=== PATIENT | male | born 1980 | race Caucasian/White ===

== ENCOUNTER 2017-02-12 15:25 | Emergency (ER) | payer BC, MEDICAID ==
[~2017-02-12] VITALS: Ht 175.3 cm; Wt 87.5 kg
[2017-02-12 16:28] LABS: *BLOOD, URINE NEGATIVE (NEGATIVE); *CLARITY,URINE CLEAR (CLEAR); *KETONES,URINE TRACE (NEGATIVE); *PROTEIN,URINE 1+ (NEGATIVE); *UROBILINOGEN,URINE 0.2 E.U./dl (NORMAL); LEUKOCYTE ESTERASE ,URINE NEGATIVE (NEGATIVE); NITRITE, URINE NEGATIVE (NEGATIVE); UGLUCOSE NEGATIVE (NEGATIVE)
--- NOTE | 2017-02-12 16:45 | NUR ---
Pt walked to nursing station and stated he has also been having intermittent chest pain, stat ekg done.
[2017-02-12 16:47] LABS: BASOPHILS # (AUTO) 0.1 K/uL (0.0-8.0); BASOPHILS % (AUTO) 1.2 % (0.0-2.0); EOSINOPHILS # (AUTO) 0.2 K/uL (0.0-0.7); EOSINOPHILS % (AUTO) 2.3 % (0.0-7.0); HEMATOCRIT 49.5 % (40-50); HEMOGLOBIN 16.6 G/DL (14.0-18.0); LYMPHOCYTES # (AUTO) 1.1 K/UL (0.8-4.8); LYMPHOCYTES % (AUTO) 12.3 % (20.5-51.5); MEAN CORPUSCULAR HEMOGLOBIN 27.9 UUG (27.0-31.0); MEAN CORPUSCULAR HGB CONC 34 g/dL (32.0-37.0); MEAN CORPUSCULAR VOLUME 83.3 FL (82.0-92.0); MONOCYTES # (AUTO) 1.1 K/UL (0.1-1.30); MONOCYTES % (AUTO) 11.6 % (0.0-11.0); NEUTROPHILS # (AUTO) 6.6 K/UL (1.8-8.9); NEUTROPHILS % (AUTO) 72.6 % (38.5-71.5); PLATELET COUNT (AUTO) 234 K/UL (150-450); RED BLOOD CELL COUNT(AUTO) 5.94 MIL/UL (4.7-6.1); WHITE BLOOD COUNT (AUTO) 9.1 K/UL (4.0-11.2)
[2017-02-12 16:52] LABS: CREATININE 1.1 mg/dL (0.6-1.3); POTASSIUM 4.5 mmol/L (3.5-5.1)
[2017-02-12 16:54] LABS: *COLOR,URINE DARK YELLOW (YELLOW)
[2017-02-12 16:55] LABS: *BILIRUBIN,URIN NEGATIVE (NEGATIVE)
[2017-02-12 16:58] LABS: BILIRUBIN,TOTAL 0.4 mg/dL (0.2-1.0); TOTAL PROTEIN, SERUM 7.8 g/dL (6.4-8.2)
[2017-02-12 16:58] LABS: CALCIUM OXALATE CRYSTALS,UR FEW /HPF (NONE SEEN); MUCUS,URINE MANY /LPF (0-FEW); WBC,URINE 0-3 /HPF (0-3)
--- NOTE | 2017-02-12 18:00 | NUR ---
Pt left before seeing the doctor, pt stated " I have to go to work ".
== END 2017-02-12 18:05 | disposition left against medical advice (07) ==
LOC: ER 15:26
DX: R10.9 Unspecified abdominal pain (principal); R53.1 Weakness
CPT/HCPCS: 36415; 80053; 81001; 85025; 93005; 99285; A4663

== ENCOUNTER 2017-05-24 20:53 | Emergency (ER) | payer BC, MEDICAID ==
[~2017-05-24] VITALS: Ht 180.3 cm; Wt 83.9 kg
--- NOTE | 2017-05-24 22:23 | NUR ---
Patient in bed, noted screaming from his bed " I have been here too long, I should be seen first, I am Vincent chi." Patient is educated that everyone is seen on a Triage basis, and the MD will be with the patient as soon as possible. Patient provided with call light, no acute distress noted at this time.
--- NOTE | 2017-05-24 23:06 | NUR ---
Ambulated to the restroom with stable gait. no acute distress at this time. Respirations even and unlabored. No SOB or congestion noted. No cardiovascular distress noted.
[2017-05-24] MEDS ORDERED: METOCLOPRAMIDE HCL 10 MG/2 ML VIAL IV ONE (23:15)
[2017-05-24] MEDS ORDERED: KETOROLAC TROMETHAMINE 15 MG INJ IVP ONE (23:15)
[2017-05-24] MEDS ORDERED: IV NORMAL SALINE 1000 ML BAG IV ONE (23:15)
[2017-05-24] MEDS ORDERED: KETOROLAC TROMETHAMINE 30 MG INJ ONE (23:38)
[2017-05-24] MEDS ORDERED: METOCLOPRAMIDE HCL 10 MG/2 ML VIAL ONE (23:38)
[2017-05-24 23:40] LABS: BASOPHILS % (AUTO) 0.4 % (0.0-2.0); EOSINOPHILS # (AUTO) 0.1 K/uL (0.0-0.7); EOSINOPHILS % (AUTO) 1.5 % (0.0-7.0); HEMATOCRIT 44.7 % (36.7-47.1); HEMOGLOBIN 15.8 g/dL (12.5-16.3); LYMPHOCYTES # (AUTO) 2.4 K/uL (20.0-40.0); LYMPHOCYTES % (AUTO) 34.6 % (20.5-51.5); MEAN CORPUSCULAR HEMOGLOBIN 29.2 uug (23.8-33.4); MEAN CORPUSCULAR HGB CONC 35 g/dL (32.5-36.3); MEAN CORPUSCULAR VOLUME 82.6 fL (73.0-96.2); MONOCYTES # (AUTO) 0.9 K/uL (2.0-10.0); MONOCYTES % (AUTO) 12.4 % (0.0-11.0); NEUTROPHILS # (AUTO) 3.5 K/uL (1.8-8.9); NEUTROPHILS % (AUTO) 51.1 % (38.5-71.5); PLATELET COUNT (AUTO) 236 K/uL (152-348); WHITE BLOOD COUNT (AUTO) 6.9 K/uL (3.6-10.2)
[2017-05-24 23:49] LABS: CREATININE 0.9 mg/dL (0.6-1.3); POTASSIUM 3.4 mmol/L (3.5-5.1)
--- NOTE | 2017-05-24 23:58 | NUR ---
Patient eloped from facility. ER physician notified. Peripheral IV removed prior to elopement. All belongings with patient. VSS. Ambulated with stable gait accompanied by . Patient is driving patient home in private vehicle.
[2017-05-25 00:04] LABS: BILIRUBIN,DIRECT 0.1 mg/dL (0.0-0.2); BILIRUBIN,TOTAL 0.3 mg/dL (0.2-1.0); TOTAL PROTEIN, SERUM 7.4 g/dL (6.4-8.2)
== END 2017-05-25 | disposition left against medical advice (07) ==
LOC: ER 20:54
DX: J11.1 Influenza due to unidentified influenza virus with other respiratory manifestations (principal)
CPT/HCPCS: 36415; 80048; 80076; 83605; 84484; 85025; 87040 ×2; 96374 ×2; 99284; A4663 ×2; J1885; J2765; J7030; 70030-TC

== ENCOUNTER 2019-12-20 15:47 | Inpatient (IN) | payer BC ==
[~2019-12-20] VITALS: Ht 175.3 cm; Wt 88.5 kg
[2019-12-20] MEDS ORDERED: KETOROLAC TROMETHAMINE 15 MG INJ IVP STA (16:13)
[2019-12-20] MEDS ORDERED: HYDROMORPHONE 1 MG/1 ML DISP.SYRIN IV ONE ×2 (16:15→19:30)
[2019-12-20] MEDS ORDERED: FAMOTIDINE. 20 MG/2 ML VIAL IV ONE ×2 (16:15→16:34)
[2019-12-20] MEDS ORDERED: ONDANSETRON 4 MG/2 ML VIAL IV ONE (16:15)
[2019-12-20] MEDS ORDERED: IV NORMAL SALINE 1000 ML BAG IV ONE ×2 (16:15)
[2019-12-20] MEDS ORDERED: PANTOPRAZOLE SODIUM IV 80 MG in IV DEXTROSE 5% 100 ML IV ONE (16:30)
[2019-12-20] MEDS ORDERED: KETOROLAC TROMETHAMINE 30 MG INJ ONE (16:33)
[2019-12-20] MEDS ORDERED: ONDANSETRON 4 MG/2 ML VIAL ONE (16:34)
[2019-12-20] MEDS ORDERED: HYDROMORPHONE 1 MG/1 ML DISP.SYRIN ONE ×2 (16:34→19:36)
[2019-12-20 16:35] LABS: BASOPHILS # (AUTO) 0.1 K/uL (0.0-8.0); BASOPHILS % (AUTO) 0.6 % (0.0-2.0); EOSINOPHILS % (AUTO) 0.5 % (0.0-7.0); HEMATOCRIT 49.8 % (36.7-47.1); HEMOGLOBIN 17.1 g/dL (12.5-16.3); LYMPHOCYTES # (AUTO) 1.5 K/uL (20.0-40.0); MEAN CORPUSCULAR HEMOGLOBIN 28.9 uug (23.8-33.4); MEAN CORPUSCULAR HGB CONC 34 g/dL (32.5-36.3); MEAN CORPUSCULAR VOLUME 84.2 fL (73.0-96.2); MONOCYTES # (AUTO) 0.9 K/uL (2.0-10.0); MONOCYTES % (AUTO) 10.1 % (0.0-11.0); NEUTROPHILS % (AUTO) 70.8 % (38.5-71.5); PLATELET COUNT (AUTO) 288 K/uL (152-348); RED BLOOD CELL COUNT(AUTO) 5.92 MIL/uL (4.06-5.63); WHITE BLOOD COUNT (AUTO) 8.5 K/uL (3.6-10.2)
[2019-12-20 16:49] LABS: BILIRUBIN,DIRECT 0.1 mg/dL (0.0-0.2); BILIRUBIN,TOTAL 0.4 mg/dL (0.2-1.0); CREATININE 1.6 mg/dL (0.6-1.3); POTASSIUM 3.9 mmol/L (3.5-5.1); TOTAL PROTEIN, SERUM 8.6 g/dL (6.4-8.2)
[2019-12-20] MEDS ORDERED: PANTOPRAZOLE SODIUM 40 MG VIAL ONE ×2 (17:22→19:37)
[2019-12-20] MEDS ORDERED: SWABABLE VALVE TRANSFER SET EA MC ONE (18:13)
[2019-12-20] MEDS ORDERED: IV NORMAL SALINE 250 ML IV ONE (18:13)
[2019-12-20] MEDS ORDERED: IOHEXOL 300MG/ML 100 ML INFUS..BTL ONE (18:13)
--- NOTE | 2019-12-20 19:15 | NUR ---
Dr. Cruz on panel call with Dr. Franki Betts. Patient accepted for admission to [facility], diagnosis: abdominal pain.
--- NOTE | 2019-12-20 19:17 | NUR ---
brie desai talking to dr. vaz per insurance request for possible transfer.
--- NOTE | 2019-12-20 19:19 | NUR ---
pt non transferable, pt will be admitted to [facility].
[2019-12-20] MEDS ORDERED: PANTOPRAZOLE SODIUM IV 80 MG in IV DEXTROSE 5% 500 ML IV ONE (19:30)
[2019-12-20] MEDS ORDERED: OCTREOTIDE ACETATE INJ 500 MCG in IV DEXTROSE 5% 100 ML IV ONE (19:30)
[2019-12-20] MEDS ORDERED: OCTREOTIDE ACETATE 50 MCG/1 ML ML IV ONE (19:30)
[2019-12-20] MEDS ORDERED: ACETAMINOPHEN 325 MG TABLET PO PRN (19:45)
[2019-12-20] MEDS ORDERED: HYDROCODONE/APAP 5-325MG TABLET PO PRN (19:45)
[2019-12-20] MEDS ORDERED: Z GUARD REMEDY PASTE 57 GM TUBE TOP PRN (19:45)
[2019-12-20] MEDS ORDERED: OCTREOTIDE ACETATE 500 MCG/1 ML VIAL ONE (21:04)
[2019-12-20] MEDS ORDERED: OCTREOTIDE ACETATE 50 MCG/1 ML ML ONE (21:04)
[2019-12-20] MEDS ORDERED: MORPHINE SULFATE 2 MG/1 ML DISP.SYRIN IV ONE (22:30)
[2019-12-20] MEDS ORDERED: MORPHINE SULFATE 2 MG/1 ML DISP.SYRIN ONE (22:32)
--- NOTE | 2019-12-20 22:47 | NUR ---
Report given to Janice GRADY Tele.
--- NOTE | 2019-12-20 23:23 | NUR ---
Received pt via [employer], transported by [facility]. Patient is AAOX4. Patient denies any acute distress but complains of abdominal pain. Will assess and administer prescribed PRN pain med. Patient is on 2L NC saturating WNL. NSR on tele monitor, V/S Stable. RFA IV is intact. Pt is afebrile. Safety measures in place. Call light within reach. Will continue to monitor.
[2019-12-20 23:30] VITALS: BP 142/97
[2019-12-20] MEDS: MORPHINE SULFATE 2 MG/1 ML DISP.SYRIN IV PRN (23:58)
[2019-12-21] MEDS: ZOLPIDEM 5 MG TABLET PO PRN ×2 (01:31→21:00)
[2019-12-21 04:00] VITALS: BP 102/52
[2019-12-21 06:19] LABS: BASOPHILS % (AUTO) 0.6 % (0.0-2.0); EOSINOPHILS # (AUTO) 0.2 K/uL (0.0-0.7); EOSINOPHILS % (AUTO) 3.2 % (0.0-7.0); HEMATOCRIT 43.1 % (36.7-47.1); HEMOGLOBIN 14.8 g/dL (12.5-16.3); LYMPHOCYTES # (AUTO) 1.9 K/uL (20.0-40.0); LYMPHOCYTES % (AUTO) 36.5 % (20.5-51.5); MEAN CORPUSCULAR HEMOGLOBIN 29.1 uug (23.8-33.4); MEAN CORPUSCULAR HGB CONC 34 g/dL (32.5-36.3); MEAN CORPUSCULAR VOLUME 84.6 fL (73.0-96.2); MONOCYTES # (AUTO) 0.7 K/uL (2.0-10.0); MONOCYTES % (AUTO) 13.3 % (0.0-11.0); NEUTROPHILS # (AUTO) 2.5 K/uL (1.8-8.9); NEUTROPHILS % (AUTO) 46.4 % (38.5-71.5); PLATELET COUNT (AUTO) 231 K/uL (152-348); RED BLOOD CELL COUNT(AUTO) 5.09 MIL/uL (4.06-5.63); WHITE BLOOD COUNT (AUTO) 5.3 K/uL (3.6-10.2)
[2019-12-21 06:39] LABS: CREATININE 1.6 mg/dL (0.6-1.3); MAGNESIUM 1.9 mg/dL (1.8-2.4); PHOSPHOROUS 3.5 mg/dL (2.5-4.9); POTASSIUM 4.2 mmol/L (3.5-5.1)
[2019-12-21 06:40] LABS: THYROID STIMULATING HORMONE 0.368 mIU/mL (0.358-3.740)
[2019-12-21] MEDS: IV D5 1/2 NS 1000 ML 1,000 ML IV PRN ×2 (06:46→19:46)
--- NOTE | 2019-12-21 06:50 | NUR ---
Pt slept throughout the night. Pt awake and denies any acute distress or pain at this time. V/S stable, on 2L NC saturating WNL. NSR 72 on tele monitor. Pain managed effectively. Comfort care and needs attended. Safety measures in place. Call light within reach. Will endorse to the oncoming nurse accordingly.
[2019-12-21] MEDS ORDERED: PANTOPRAZOLE SODIUM 40 MG VIAL IV SCH (09:00)
[2019-12-21 10:39] LABS: *BILIRUBIN,URIN NEGATIVE (NEGATIVE); *BLOOD, URINE NEGATIVE (NEGATIVE); *CLARITY,URINE CLEAR (CLEAR); *KETONES,URINE NEGATIVE (NEGATIVE); *UROBILINOGEN,URINE 0.2 E.U./dl (NORMAL); LEUKOCYTE ESTERASE ,URINE NEGATIVE (NEGATIVE); NITRITE, URINE NEGATIVE (NEGATIVE); UGLUCOSE NEGATIVE (NEGATIVE)
[2019-12-21 10:44] LABS: *COLOR,URINE YELLOW (YELLOW)
[2019-12-21 10:50] LABS: *CREATININE,URINE < 13.0 mg/dL (30-125); *URINE TOTAL PROTEIN RANDOM < 6.0 mg/dL (<150/24HR)
[2019-12-21 11:25] LABS: *AMPHETAMINE, URINE NEGATIVE (NEGATIVE); *BARBITURATE, URINE NEGATIVE (NEGATIVE); *CANNABINOID, URINE NEGATIVE (NEGATIVE); *COCCAINE, URINE NEGATIVE (NEGATIVE); *OPIATE, URINE NEGATIVE (NEGATIVE); *PHENCYCLIDINE SCREEN,URINE NEGATIVE (NEGATIVE)
[2019-12-21 11:30] VITALS: BP 109/67
[2019-12-21] MEDS: ONDANSETRON 4 MG/2 ML VIAL IV PRN ×2 (11:42→12:20)
[2019-12-21] MEDS: MORPHINE SULFATE 2 MG/1 ML DISP.SYRIN IV PRN ×4 (11:42→23:33)
[2019-12-21 12:34] LABS: ALANINE AMINOTRANSFERASE 73 U/L (16-63); ALKALINE PHOSPHATASE 58 U/L (50-136); ASPARTATE AMINOTRANSFERASE 41 U/L (15-37); BILIRUBIN,DIRECT < 0.1 mg/dL (0.0-0.2); BILIRUBIN,TOTAL 0.5 mg/dL (0.2-1.0); TOTAL PROTEIN, SERUM 6.9 g/dL (6.4-8.2)
[2019-12-21] MEDS: PANTOPRAZOLE SODIUM 40 MG VIAL IV SCH (16:03)
[2019-12-21 16:07] VITALS: BP 126/73
--- NOTE | 2019-12-21 19:30 | NUR ---
Received patient calm sitting on the side of the bed. AAOX4. No signs or symptoms of acute distress noted at this time. Patient c/o pain and will administer medication according to availability. monitor car operator is on. Right AC IV patent and intact. Safety measures initiated and will continue to monitor.
[2019-12-21 20:02] VITALS: BP 125/71
[2019-12-21 21:59] LABS: *OCCULT BLOOD STOOL NEGATIVE (NEGATIVE)
[2019-12-22] VITALS: BP 122/54
[2019-12-22] MEDS: LORAZEPAM 2 MG/1 ML VIAL IV PRN ×3 (00:04→22:20)
[2019-12-22 04:00] VITALS: BP 120/60
[2019-12-22 06:32] LABS: BASOPHILS % (AUTO) 0.6 % (0.0-2.0); EOSINOPHILS # (AUTO) 0.2 K/uL (0.0-0.7); EOSINOPHILS % (AUTO) 4.1 % (0.0-7.0); HEMATOCRIT 41.7 % (36.7-47.1); HEMOGLOBIN 14.4 g/dL (12.5-16.3); LYMPHOCYTES # (AUTO) 1.6 K/uL (20.0-40.0); LYMPHOCYTES % (AUTO) 30.7 % (20.5-51.5); MEAN CORPUSCULAR HEMOGLOBIN 29.1 uug (23.8-33.4); MEAN CORPUSCULAR HGB CONC 35 g/dL (32.5-36.3); MEAN CORPUSCULAR VOLUME 84.2 fL (73.0-96.2); MONOCYTES # (AUTO) 0.7 K/uL (2.0-10.0); MONOCYTES % (AUTO) 13.4 % (0.0-11.0); NEUTROPHILS # (AUTO) 2.6 K/uL (1.8-8.9); NEUTROPHILS % (AUTO) 51.2 % (38.5-71.5); PLATELET COUNT (AUTO) 207 K/uL (152-348); RED BLOOD CELL COUNT(AUTO) 4.96 MIL/uL (4.06-5.63); WHITE BLOOD COUNT (AUTO) 5.1 K/uL (3.6-10.2)
[2019-12-22 06:45] LABS: BILIRUBIN,TOTAL 0.4 mg/dL (0.2-1.0); CREATININE 1.2 mg/dL (0.6-1.3); MAGNESIUM 2.5 mg/dL (1.8-2.4); PHOSPHOROUS 4.1 mg/dL (2.5-4.9); POTASSIUM 3.6 mmol/L (3.5-5.1); TOTAL PROTEIN, SERUM 6.7 g/dL (6.4-8.2)
--- NOTE | 2019-12-22 07:10 | NUR ---
Received patient in bed sleeping AAOX4. No signs or symptoms of acute distress noted at this time. no c/o pain noted cafeteria monitor is on. Right AC IV patent and intact. Safety measures initiated and will continue to monitor.
[2019-12-22] MEDS: PANTOPRAZOLE SODIUM 40 MG VIAL IV SCH ×2 (08:07→16:06)
[2019-12-22] MEDS: IV D5 1/2 NS 1000 ML 1,000 ML IV PRN (10:10)
[2019-12-22 11:46] VITALS: BP 110/68
--- NOTE | 2019-12-22 12:28 | NUR ---
pt went to gi lab for procedure via bed in stable condition
[2019-12-22] MEDS ORDERED: MIDAZOLAM HCL 2 MG/2 ML VIAL ONE (13:08)
--- NOTE | 2019-12-22 14:22 | NUR ---
pt received back from recovery room via bed in stable condition
[2019-12-22 14:25] VITALS: BP 121/77
[2019-12-22] MEDS: MORPHINE SULFATE 2 MG/1 ML DISP.SYRIN IV PRN ×3 (15:24→21:45)
[2019-12-22 15:50] VITALS: BP 135/92
--- NOTE | 2019-12-22 19:00 | NUR ---
Alert oriented no sob no chest pain. Patient tele monitor sinus rythym . Patient on Morphine 2mg iv every three hours for abdominal pain. cont to monitor.
[2019-12-22 20:03] VITALS: BP 127/71
--- NOTE | 2019-12-22 20:18 | NUR ---
Notify Dr. Franki Betts the patient request to increase or change his pain meds due according to patient medication not working. has no new order.
[2019-12-23] VITALS: BP 111/64
[2019-12-23] MEDS: IV D5 1/2 NS 1000 ML 1,000 ML IV PRN (01:27)
[2019-12-23 04:00] VITALS: BP 113/56
--- NOTE | 2019-12-23 05:55 | NUR ---
PATIENT SLEPT MOST OF THE NIGHT, TELE MONITOR SINUS RYTHM. PATIENT HAS NO COMPLAIN OF PAIN AT THIS TIME, PATIENT GOES TO BATHROOM FOR BLADDER ELIMINATIONS, CONT TO MONITOR.
[2019-12-23 06:20] LABS: BASOPHILS % (AUTO) 0.6 % (0.0-2.0); EOSINOPHILS # (AUTO) 0.2 K/uL (0.0-0.7); EOSINOPHILS % (AUTO) 3.7 % (0.0-7.0); HEMATOCRIT 41.4 % (36.7-47.1); HEMOGLOBIN 14.5 g/dL (12.5-16.3); LYMPHOCYTES # (AUTO) 1.4 K/uL (20.0-40.0); LYMPHOCYTES % (AUTO) 30.7 % (20.5-51.5); MEAN CORPUSCULAR HEMOGLOBIN 29.2 uug (23.8-33.4); MEAN CORPUSCULAR HGB CONC 35 g/dL (32.5-36.3); MEAN CORPUSCULAR VOLUME 83.8 fL (73.0-96.2); MONOCYTES # (AUTO) 0.7 K/uL (2.0-10.0); MONOCYTES % (AUTO) 14.9 % (0.0-11.0); NEUTROPHILS # (AUTO) 2.3 K/uL (1.8-8.9); NEUTROPHILS % (AUTO) 50.1 % (38.5-71.5); PLATELET COUNT (AUTO) 208 K/uL (152-348); RED BLOOD CELL COUNT(AUTO) 4.95 MIL/uL (4.06-5.63); WHITE BLOOD COUNT (AUTO) 4.5 K/uL (3.6-10.2)
[2019-12-23 06:24] LABS: CREATININE 1.1 mg/dL (0.6-1.3); POTASSIUM 3.7 mmol/L (3.5-5.1)
[2019-12-23] MEDS: PANTOPRAZOLE SODIUM 40 MG VIAL IV SCH (08:01)
[2019-12-23] MEDS ORDERED: PROPOFOL 200 MG/20 ML BOTTLE IV ONE (08:18)
[2019-12-23] MEDS ORDERED: IV NORMAL SALINE 1000 ML BAG IV ONE (08:18)
[2019-12-23] MEDS ORDERED: LIDOCAINE-MPF 2% 5 ML VIAL IJ ONE (08:18)
[2019-12-23] MEDS ORDERED: OMEP20TA20 PO (11:24)
[2019-12-23 11:45] VITALS: BP 118/68
--- NOTE | 2019-12-23 12:46 | NUR ---
dc orders received noted and carried out,dc heplock per md orders .dc instruction and education given to the pt.pt said he will follow up with his pcp in one week.pt left the facility via private car in stable condition
[2019-12-23 15:06] LABS: A/G RATIO 1.1 (0.7-1.7); ALBUMIN 3.2 g/dL (2.9-4.4); ALPHA-1-GLOBULIN 0.2 g/dL (0.0-0.4); ALPHA-2-GLOBULIN 0.7 g/dL (0.4-1.0); GAMMA GLOBULIN 0.9 g/dL (0.4-1.8); GLOBULIN, TOTAL 2.8 g/dL (2.2-3.9); M-SPIKE Not Observed g/dL (Not Observed)
[2019-12-23] MEDS ORDERED: PANTOPRAZOLE SODIUM 40 MG TABLET.DR PO SCH (17:00)
== END 2019-12-23 12:50 | disposition home or self-care (01) | DRG 241 ==
LOC: ER 15:47 → TELE3 23:07
PROVIDERS: ADMIT Nurse Practitioner Acute Care; ATTEND Nurse Practitioner Acute Care
PROC: 0DB68ZX Excision of Stomach, Via Natural or Artificial Opening Endoscopic, Diagnostic (ICD-10-PCS; principal; 2019-12-22)
PROC: 0DB58ZX Excision of Esophagus, Via Natural or Artificial Opening Endoscopic, Diagnostic (ICD-10-PCS; principal; 2019-12-22)
DX: K25.4 Chronic or unspecified gastric ulcer with hemorrhage (principal); K44.9 Diaphragmatic hernia without obstruction or gangrene; N17.0 Acute kidney failure with tubular necrosis; K76.0 Fatty (change of) liver, not elsewhere classified; E86.9 Volume depletion, unspecified; N28.1 Cyst of kidney, acquired; R74.0 Nonspecific elevation of levels of transaminase and lactic acid dehydrogenase [LDH]; K21.0 Gastro-esophageal reflux disease with esophagitis; K31.9 Disease of stomach and duodenum, unspecified; K29.80 Duodenitis without bleeding; K29.60 Other gastritis without bleeding; Z72.89 Other problems related to lifestyle
CPT/HCPCS: 36415; 70030-TC; 71045; 76700; 76770; 80307; 83690; 83735; 83970; 84100; 84155; 84156; 84165; 84300; 84443; 85018; 85025; 88313-TC; 88342; 93005; A4217; A4663; C9113; G0378; G0480; J1170; J1885; J2060; J2250; J2270; J2354; J2405; J3490; J7030; J7050; J7060; Q9967